=== PATIENT | male | born 1940 | race Caucasian/White ===

== ENCOUNTER 2016-10-12 08:33 | Emergency (ER) | payer OTHER ==
[~2016-10-12] VITALS: Ht 182.9 cm; Wt 80.0 kg
[~2016-10-12 08:33] MED LIST: ALLOPURINOL300 MG PO; CAL MAG ZINC +1 EACH PO; FISH OIL 1,0001 EA10 PO; LISINOPRIL10 MG PO; LO-DOSE ASPIRIN81 M1 PO; METFORMIN HCL1000 MG PO; METOPROLOL SUCC25 MG PO; OMEPRAZOLE20 MG PO; PRINZIDE 20-121 EACH PO; XARELTO20 MG PO
[2016-10-12 09:26] LABS: EOSINOPHIL COUNT 0.1 K/uL (0-0.3); HEMATOCRIT 37.5 % (38.0-50.0); IMMATURE GRANULOCYTE (%) 0.9 % (0.0-0.7); IMMATURE GRANULOCYTE COUNT 0.1 K/uL; LYMPHOCYTE COUNT 1.9 K/uL (1.0-2.8); MCH 30.4 PG (29.0-34.0); MCHC 33.1 G/DL (30.0-36.0); MCV 91.9 FL (86-99); MONOCYTE (%) 7.8 % (3-12); MONOCYTE COUNT 0.9 K/uL (0-0.8); NEUTROPHIL (%) 73.2 % (45-76); PLATELET COUNT 364 K/uL (156-360); RBC DIS.WIDTH-CV 13.2 % (11.8-14.6); RBC DIS.WIDTH-SD 44.4 % (39-53); RED BLOOD COUNT 4.08 M/uL (4.00-5.50)
[2016-10-12 09:36] LABS: CHLORIDE 100 mEq/L (99-109); POTASSIUM 4.7 mEq/L (3.7-5.4); SODIUM 134 mEq/L (136-147)
[2016-10-12 09:38] LABS: GLUCOSE 148 mg/dL (70-99)
[2016-10-12 09:39] LABS: ANION GAP 9 MEQ/L (2-14)
[2016-10-12 09:40] LABS: TOTAL BILIRUBIN 0.6 mg/dL (0.0-1.0)
[2016-10-12 09:41] LABS: ALKALINE PHOSPHATASE 73 IU/L (3-129)
[2016-10-12 09:42] LABS: GFR ESTIMATE (CALCULATED) 57 mL/min/
[2016-10-12 09:43] LABS: UREA NITROGEN (BUN) 23 mg/dL (9-23)
[2016-10-12 09:45] LABS: LIPASE 40 U/L (1.0-51.0)
[2016-10-12 12:43] LABS: ADD MIUA? NO; BILIRUBIN NEGATIVE; BLOOD NEGATIVE; COLOR YELLOW ((YELLOW)); GLUCOSE (STRIP) NEGATIVE; KETONES NEGATIVE; LEUKOCYTES NEGATIVE; NITRITE NEGATIVE; PROTEIN (STRIP) NEGATIVE; UCUL ADDED? NO; UROBILINOGEN 0.2 MG/DL (0.2-1.0)
[2016-10-12 12:56] LABS: SPECIFIC GRAVITY 1.058 (1.000-1.030)
[2016-10-12] MEDS ORDERED: TRAMADOL HCL50 MG PO (13:03)
[2016-10-12 13:18] VITALS: BP 121/62
== END 2016-10-12 13:20 | disposition home or self-care (01) ==
LOC: EME 08:33
PROVIDERS: Emergency Medicine
DX: M54.2 Cervicalgia (principal); R19.7 Diarrhea, unspecified; E11.9 Type 2 diabetes mellitus without complications; Z87.442 Personal history of urinary calculi; Z79.84 Long term (current) use of oral hypoglycemic drugs; Z88.2 Allergy status to sulfonamides
CPT/HCPCS: 72125; 74177; 80053; 81003; 83690; 85025; 99281; 99284; J3010; J7040

== ENCOUNTER 2016-10-23 07:04 | Inpatient (IN) | payer OTHER ==
[~2016-10-23] VITALS: Ht 182.9 cm; Wt 80.7 kg
[~2016-10-23 07:04] MED LIST changes: -CAL MAG ZINC +1 EACH PO; +CITRACAL + D C1 EACH PO; +LISINOPRIL20 MG PO; +TRAMADOL HCL50 MG PO
[2016-10-23 07:16] LABS: EOSINOPHIL (%) 0.7 % (0-5); EOSINOPHIL COUNT 0.1 K/uL (0-0.3); HEMATOCRIT 31.9 % (38.0-50.0); IMMATURE GRANULOCYTE (%) 0.4 % (0.0-0.7); LYMPHOCYTE COUNT 1.3 K/uL (1.0-2.8); MCH 30.3 PG (29.0-34.0); MCHC 33.2 G/DL (30.0-36.0); MCV 91.1 FL (86-99); MEAN PLAT.VOLUME 9.1 uM^3 (9.0-12.4); MONOCYTE (%) 5.7 % (3-12); MONOCYTE COUNT 0.6 K/uL (0-0.8); NEUTROPHIL (%) 81.5 % (45-76); PLATELET COUNT 420 K/uL (156-360); RBC DIS.WIDTH-CV 12.6 % (11.8-14.6); RBC DIS.WIDTH-SD 41.5 % (39-53); WHITE BLOOD COUNT 11.1 K/uL (4.1-10.2)
[2016-10-23 07:22] LABS: CREATININE 1.1 mg/dL (0.6-1.3)
[2016-10-23 07:36] LABS: INTER. NORMALIZED RATIO 2.3; PROTHROMBIN TIME 25.7 SEC (10.2-12.9)
[2016-10-23 07:39] LABS: PTT 35.6 SEC (25-37)
[2016-10-23 07:50] LABS: AMYLASE 31 IU/L (1-118); ANION GAP 10 MEQ/L (2-14); CHLORIDE 97 MEQ/L (99-109); GFR ESTIMATE (CALCULATED) > 59 mL/min/; GLUCOSE 161 mg/dL (70-99); LIPASE 25 U/L (1.0-51.0); SAMPLE HEMOLYSIS CHECK 0; SAMPLE ICTERIC CHECK 0; SAMPLE LIPEMIA CHECK 0; SERUM ETHYL ALCOHOL < 10 mg/dL; SODIUM 133 MEQ/L (136-147); UREA NITROGEN (BUN) 24 mg/dL (9-23)
[2016-10-23 08:14] LABS: CREATINE KINASE 61 IU/L (1-294); TROP-I INTERPRETATION NEGATIVE; TROPONIN-I 0.02 ng/mL (0.0-0.30)
[2016-10-23 08:36] LABS: ADD MIUA? NO; BILIRUBIN NEGATIVE; BLOOD NEGATIVE; COLOR STRAW ((YELLOW)); GLUCOSE (STRIP) 50; KETONES NEGATIVE; LEUKOCYTES NEGATIVE; NITRITE NEGATIVE; PROTEIN (STRIP) NEGATIVE; SPECIFIC GRAVITY 1.018 (1.000-1.030); UCUL ADDED? NO; UROBILINOGEN 0.2 MG/DL (0.2-1.0)
[2016-10-23 09:09] LABS: AMPHETAMINE NEGATIVE (500 ng/mL); BARBITURATES NEGATIVE (200 ng/mL); BENZODIAZEPINES NEGATIVE (150 ng/mL); COCAINE NEGATIVE (150 ng/mL); INTERNAL CONTROLS VALID? YES; METHADONE NEGATIVE (200 ng/mL); METHAMPHETAMINE NEGATIVE (500 ng/mL); OPIATES (MORPHINE) NEGATIVE (100 ng/mL); OXYCODONE NEGATIVE (100 ng/mL); PHENCYCLIDINE NEGATIVE (25 ng/mL); PROPOXYPHENE NEGATIVE (300 ng/mL); THC CANNABINOIDS NEGATIVE (50 ng/mL); TRICYCLIC ANTIDEPRESSANTS NEGATIVE (300 ng/mL)
[2016-10-23] MEDS ORDERED: TRAMADOL HCL50 MG PO (10:22)
[2016-10-23] MEDS ORDERED: AMIODARONE HCL200 MG PO (10:23)
[2016-10-23] MEDS ORDERED: METAXALONE800 MG PO (10:23)
[2016-10-23] MEDS ORDERED: TYLENOL EXTRA500 MG PO (10:24)
[2016-10-23] MEDS ORDERED: ATORVASTATIN CA20 MG PO (10:24)
[2016-10-23 12:12] VITALS: BP 184/84
[2016-10-23 13:10] VITALS: BP 171/81
[2016-10-23 14:18] LABS: POINT-OF-CARE METER ID UU14188577; POINT-OF-CARE USER ID AGYWST
[2016-10-23 14:23] LABS: LYME DISEASE SEROLOGY SCREEN NEGATIVE (NEGATIVE)
[2016-10-23 15:15] VITALS: BP 133/67
[2016-10-23 17:09] LABS: POINT-OF-CARE METER ID UU14208753
[2016-10-23 20:37] VITALS: BP 164/83
[2016-10-23 20:39] VITALS: BP 164/82
[2016-10-23 21:50] LABS: POINT-OF-CARE METER ID UU14117124
[2016-10-24] VITALS (7 sets, daily range): BP systolic 122–159; BP diastolic 58–79
[2016-10-24 06:14] LABS: HEMATOCRIT 32.4 % (38.0-50.0); MCH 29.7 PG (29.0-34.0); MEAN PLAT.VOLUME 9.4 uM^3 (9.0-12.4); PLATELET COUNT 447 K/uL (156-360); RBC DIS.WIDTH-CV 12.7 % (11.8-14.6); RBC DIS.WIDTH-SD 42.3 % (39-53); WHITE BLOOD COUNT 5.7 K/uL (4.1-10.2)
[2016-10-24 06:52] LABS: ANION GAP 10 MEQ/L (2-14); CHLORIDE 100 MEQ/L (99-109); GFR ESTIMATE (CALCULATED) > 59 mL/min/; GLUCOSE 167 mg/dL (70-99); POTASSIUM 3.7 MEQ/L (3.7-5.4); SAMPLE HEMOLYSIS CHECK 0; SAMPLE ICTERIC CHECK 0; SAMPLE LIPEMIA CHECK 0; SODIUM 136 MEQ/L (136-147); UREA NITROGEN (BUN) 18 mg/dL (9-23)
[2016-10-24 10:22] LABS: TREPONEMA ANTIBODY NEGATIVE (NEGATIVE)
[2016-10-24 18:15] LABS: APPEARANCE CLEAR/COLORLESS; RED CELL AREA COUNTED 18; RED CELL COUNT 1 /MM^3 (0-1); RED CELL DILUTION 1; WBC AREA COUNTED 18; WBC DILUTION 1; WHITE CELL COUNT 2 /MM^3 (0-5); WHITE CELL RAW COUNT 3
[2016-10-24 18:16] LABS: CSF EOSINOPHILS ND % (0-25); MONONUCLEAR WBC'S ND % (50-90); POLYNUCLEAR WBC'S ND % (0-3)
[2016-10-24 18:26] LABS: POINT-OF-CARE METER ID UU14117124
[2016-10-24 18:45] LABS: GLUCOSE 218 mg/dL (70-99)
[2016-10-25 03:04] VITALS: BP 130/62
[2016-10-25 06:30] LABS: POINT-OF-CARE METER ID UU14208753
[2016-10-25 07:51] VITALS: BP 150/83
[2016-10-25 10:31] LABS: HEMATOCRIT 30.5 % (38.0-50.0); MCH 31.1 PG (29.0-34.0); MCHC 34.1 G/DL (30.0-36.0); MCV 91.3 FL (86-99); MEAN PLAT.VOLUME 9.4 uM^3 (9.0-12.4); PLATELET COUNT 431 K/uL (156-360); RBC DIS.WIDTH-CV 13.2 % (11.8-14.6); RBC DIS.WIDTH-SD 43.2 % (39-53); RED BLOOD COUNT 3.34 M/uL (4.00-5.50); WHITE BLOOD COUNT 14.1 K/uL (4.1-10.2)
[2016-10-25 10:47] LABS: INTER. NORMALIZED RATIO 1.4; PROTHROMBIN TIME 15.1 SEC (10.2-12.9)
[2016-10-25 10:58] LABS: ANION GAP 11 MEQ/L (2-14); CHLORIDE 106 MEQ/L (99-109); GFR ESTIMATE (CALCULATED) > 59 mL/min/; GLUCOSE 271 mg/dL (70-99); POTASSIUM 3.7 MEQ/L (3.7-5.4); SAMPLE HEMOLYSIS CHECK 0; SAMPLE ICTERIC CHECK 0; SAMPLE LIPEMIA CHECK 0; SODIUM 140 MEQ/L (136-147); UREA NITROGEN (BUN) 20 mg/dL (9-23)
[2016-10-25 11:37] VITALS: BP 157/71
[2016-10-25 11:39] LABS: POINT-OF-CARE METER ID UU14208753
[2016-10-25 14:42] LABS: HSV CSF Spec Source CSF (())
[2016-10-25 15:37] VITALS: BP 149/70
[2016-10-25 16:11] LABS: POINT-OF-CARE METER ID UU14208753
[2016-10-25 19:16] VITALS: BP 180/90
[2016-10-25 22:02] LABS: POINT-OF-CARE METER ID UU14208753
[2016-10-25 23:20] VITALS: BP 160/75
[2016-10-26 04:48] VITALS: BP 130/72
[2016-10-26 06:48] LABS: POINT-OF-CARE METER ID UU14117124
[2016-10-26 07:20] VITALS: BP 161/72
[2016-10-26 11:04] LABS: POINT-OF-CARE METER ID UU14117124
[2016-10-26 11:40] VITALS: BP 168/79
[2016-10-26 16:21] VITALS: BP 151/71
[2016-10-26 16:26] LABS: POINT-OF-CARE METER ID UU14117124
[2016-10-26 21:19] VITALS: BP 160/70
[2016-10-26 21:34] LABS: POINT-OF-CARE METER ID UU14117124
[2016-10-26 23:29] VITALS: BP 157/75
[2016-10-27 01:41] VITALS: BP 110/66
[2016-10-27 03:11] VITALS: BP 114/75
[2016-10-27 06:46] LABS: HEMATOCRIT 28.5 % (38.0-50.0); MCH 30.1 PG (29.0-34.0); MCV 91.3 FL (86-99); MEAN PLAT.VOLUME 9.5 uM^3 (9.0-12.4); PLATELET COUNT 412 K/uL (156-360); RBC DIS.WIDTH-CV 13.2 % (11.8-14.6); RBC DIS.WIDTH-SD 43.7 % (39-53); RED BLOOD COUNT 3.12 M/uL (4.00-5.50); WHITE BLOOD COUNT 10.2 K/uL (4.1-10.2)
[2016-10-27 07:12] LABS: ANION GAP 7 MEQ/L (2-14); CHLORIDE 105 MEQ/L (99-109); GFR ESTIMATE (CALCULATED) > 59 mL/min/; GLUCOSE 147 mg/dL (70-99); POTASSIUM 3.9 MEQ/L (3.7-5.4); SAMPLE HEMOLYSIS CHECK 0; SAMPLE ICTERIC CHECK 0; SAMPLE LIPEMIA CHECK 0; SODIUM 141 MEQ/L (136-147); UREA NITROGEN (BUN) 21 mg/dL (9-23)
[2016-10-27 07:25] VITALS: BP 164/79
[2016-10-27 17:13] VITALS: BP 168/81
[2016-10-27 20:00] VITALS: BP 173/84
[2016-10-27 21:57] LABS: POINT-OF-CARE METER ID UU14117124
[2016-10-28 00:03] VITALS: BP 158/64
[2016-10-28 05:17] VITALS: BP 132/72
[2016-10-28 06:58] LABS: POINT-OF-CARE METER ID UU14117124
[2016-10-28 07:15] VITALS: BP 171/79
[2016-10-28 10:30] LABS: ANION GAP 9 MEQ/L (2-14); CHLORIDE 100 MEQ/L (99-109); GFR ESTIMATE (CALCULATED) > 59 mL/min/; GLUCOSE 205 mg/dL (70-99); POTASSIUM 3.6 MEQ/L (3.7-5.4); SAMPLE HEMOLYSIS CHECK 0; SAMPLE ICTERIC CHECK 0; SAMPLE LIPEMIA CHECK 0; SODIUM 138 MEQ/L (136-147); UREA NITROGEN (BUN) 18 mg/dL (9-23)
[2016-10-28 11:30] VITALS: BP 166/80
[2016-10-28 12:03] LABS: HEMATOCRIT 32.6 % (38.0-50.0); MCH 30.3 PG (29.0-34.0); MCHC 33.7 G/DL (30.0-36.0); MCV 89.8 FL (86-99); MEAN PLAT.VOLUME 9.1 uM^3 (9.0-12.4); NRBC (%) 0.3 /100 WBC (0-0); PLATELET COUNT 408 K/uL (156-360); RBC DIS.WIDTH-CV 13.1 % (11.8-14.6); RBC DIS.WIDTH-SD 42.8 % (39-53); RED BLOOD COUNT 3.63 M/uL (4.00-5.50); WHITE BLOOD COUNT 9.8 K/uL (4.1-10.2)
[2016-10-28 12:38] LABS: POINT-OF-CARE METER ID UU14117124
[2016-10-28] MEDS ORDERED: DOXYCYCLINE HY100 M3 PO (14:22)
[2016-10-28 16:05] VITALS: BP 165/80
[2016-10-28 16:42] LABS: POINT-OF-CARE METER ID UU14117124
== END 2016-10-28 17:28 | disposition home or self-care (01) | DRG 97 ==
LOC: EDBD 07:04 → TRA 07:04 → EDOF 09:41 → 3EAST 09:41 → ENRESERV 09:51 → 3EAST 11:46
PROVIDERS: Emergency Medicine; Family Medicine; Hospitalist; Internal Medicine; Internal Medicine Infectious Disease; Physician Assistant
PROC: 009U3ZX Drainage of Spinal Canal, Percutaneous Approach, Diagnostic (ICD-10-PCS; principal; 2016-10-24)
DX: G03.9 Meningitis, unspecified (principal); G04.90 Encephalitis and encephalomyelitis, unspecified; E87.1 Hypo-osmolality and hyponatremia; F05 Delirium due to known physiological condition; D69.59 Other secondary thrombocytopenia; E11.65 Type 2 diabetes mellitus with hyperglycemia; S00.03XA Contusion of scalp, initial encounter; S60.511A Abrasion of right hand, initial encounter; S60.512A Abrasion of left hand, initial encounter; R41.82 Altered mental status, unspecified; M10.9 Gout, unspecified; M51.36 Other intervertebral disc degeneration, lumbar region; K21.9 Gastro-esophageal reflux disease without esophagitis; I48.0 Paroxysmal atrial fibrillation; F32.9 Major depressive disorder, single episode, unspecified; I10 Essential (primary) hypertension; D64.9 Anemia, unspecified; E78.2 Mixed hyperlipidemia; R44.1 Visual hallucinations; M19.90 Unspecified osteoarthritis, unspecified site; K14.6 Glossodynia; K22.70 Barrett's esophagus without dysplasia; M43.6 Torticollis; M47.814 Spondylosis without myelopathy or radiculopathy, thoracic region; M48.06 Spinal stenosis, lumbar region; Z88.2 Allergy status to sulfonamides; Z81.8 Family history of other mental and behavioral disorders; Z87.442 Personal history of urinary calculi; Z79.01 Long term (current) use of anticoagulants; Z82.0 Family history of epilepsy and other diseases of the nervous system; Z82.49 Family history of ischemic heart disease and other diseases of the circulatory system
CPT/HCPCS: 70450; 70553; 71260; 72125; 72129; 72132; 74177; 80047; 80048; 80202; 81003; 82150; 82550; 82945; 82947 91; 82948; 83690; 84155; 84157; 84484; 85025; 85027; 85610; 85730; 86611 90; 86618; 86780; 86788 90; 86789 90; 86850; 86900; 86901; 87040; 87070; 87205; 87529 90; 87899; 89051; 93005; 99281; 99285; G0480; J0133; J0696; J1815; J2930; J3370; J7030; J7050